=== PATIENT | female | born 1950 | race Caucasian/White ===

== ENCOUNTER 2017-02-01 07:34 | Day surgery (SDC) | payer MEDICARE, BC ==
[~2017-02-01 07:34] MED LIST: Midazolam 1 MG/ML 2 ML SDV ONE; fentaNYL 100 MCG/2 ML SDV ONE
[2017-02-01] MEDS ORDERED: fentaNYL 100 MCG/2 ML SDV IV ONE ×3 (07:35→08:53)
[2017-02-01] MEDS ORDERED: Midazolam 1 MG/ML 2 ML SDV IV ONE ×3 (07:35→08:55)
[2017-02-01] MEDS ORDERED: Sodium Chloride 0.9% 10 ML Syringe FLUSH PRN (08:30)
[2017-02-01] MEDS ORDERED: Dextrose 5%-0.45% NaCl 1,000 ML IV SCH (08:30)
[2017-02-01 11:31] VITALS: BP 118/49
--- NOTE | 2017-02-01 14:27 | OR ---
DATE: 02/01/2017 PROCEDURE: Esophagogastroduodenoscopy, NBI, and multiple pinch biopsies. INSTRUMENT USED: GIF-H180 Olympus video panendoscope. PREMEDICATIONS: No oral topical anesthesia used. Fentanyl 100 mcg intravenous, Versed 2 mg intravenous. Nasal O2 cannula. The procedure was done also oximetry, BP recording, and black top raker. INDICATION: The patient on longstanding-aspirin ingestion with recently detected iron-deficiency anemia. Esophagogastroduodenoscopy is performed for detection of any active erosive lesions, Tovar esophagus and/or malignancy also under consideration, H. pylori status to be determined, small bowel biopsies to be obtained if indicated, endoscopic hemostasis therapy if needed. DESCRIPTION OF PROCEDURE: The scope was passed with ease. Adequate visualization of the esophagus was made from proximal to distal areas. No upper esophageal lesions noted. No distal esophageal stricture. No uphill or downhill esophageal varices. No Amber-Lazcano tear. No evidence of erosive esophagitis by Westley criteria. No esophageal polyp or tumor mass identified. Large sliding hiatal hernia was noted along with Mariano's erosions noted without bleeding from them. No gastric malignant mass, or vascular ectasia identified. Erythematous mucosa was noted in the mid gastric body, NBI views were obtained, photographs were taken, multiple pinch biopsies were obtained and sent for histopathology. Photographs were taken of the Mariano's erosions. Duodenal bulb showed no ulcer. Visualized second part of the duodenum was unremarkable. Scattered gastric antral erosions were noted without bleeding from them. Multiple pinch biopsies were taken from the gastric antrum and proximal body and sent for PyloriTek test for H. pylori and histopathology. No bleeding was noted from any of the visualized areas at the completion of examination. IMPRESSION: 1. Sliding hiatal hernia. 2. Mariano's erosions. 3. Gastric antral erosions. The patient tolerated the procedure well. [facility] /[id number]
== END 2017-02-01 11:03 | disposition home or self-care (01) ==
LOC: DL.ENDO 07:34
PROVIDERS: ATTEND Internal Medicine Gastroenterology
DX: K44.9 Diaphragmatic hernia without obstruction or gangrene (principal); D50.9 Iron deficiency anemia, unspecified; E66.09 Other obesity due to excess calories; I10 Essential (primary) hypertension; E78.5 Hyperlipidemia, unspecified
CPT/HCPCS: 43239; 87077; J7042; 88305; J2250; J3010